=== PATIENT | male | born 1960 | race Caucasian/White ===

== ENCOUNTER → 2021-06-14 16:30 | Outpatient (BNVA) | payer MEDICAID, SELFPAY | PROVIDERS: Visit Provider Nurse Practitioner Family | DX: E11.9 Type 2 diabetes mellitus without complications (principal); B19.20 Unspecified viral hepatitis C without hepatic coma; I10 Essential (primary) hypertension; R39.11 Hesitancy of micturition; Z79.4 Long term (current) use of insulin | CPT/HCPCS: 80053; 80061; 81000; 81003; 82043; 83036; 85025; 86705; 86706; 86709; 86803; 87086; 87340; 87522; 87902; G0103 ==

== ENCOUNTER → 2021-06-21 09:48 | Outpatient (BNVA) | payer MEDICAID, SELFPAY | PROVIDERS: Referring Provider Nurse Practitioner Family; Visit Provider Orthopaedic Surgery | DX: Z01.812 Encounter for preprocedural laboratory examination (principal); M25.561 Pain in right knee; M17.11 Unilateral primary osteoarthritis, right knee | CPT/HCPCS: 73560; 73565 ==

== ENCOUNTER → 2021-07-17 10:15 | Outpatient (BNVA) | payer MEDICAID, SELFPAY | PROVIDERS: Visit Provider Nurse Practitioner Family | DX: R31.9 Hematuria, unspecified (principal); R39.11 Hesitancy of micturition | CPT/HCPCS: 81003; 87086 ==

== ENCOUNTER 2021-08-10 06:44 | Outpatient (CLI) | payer MEDICAID, SELFPAY ==
--- NOTE | 2021-08-10 07:15 | US_ITS ---
WS: [id number] ULTRASOUND ABDOMEN CLINICAL INFORMATION: K74.60 - Unspecified cirrhosis of liver COMPARISON: None. FINDINGS: Liver Size: Enlarged Craniocaudal length: 19.2 cm. Echogenicity: Coarse Surface nodularity: Cirrhotic Mass (size and location): None. Bile ducts Intrahepatic ducts: Normal. Common bile duct diameter: 0.4 cm. Gallbladder Cholecystectomy Pancreas Normal as visualized. Spleen Splenomegaly: Enlarged Craniocaudal length: 17.9 cm. Right kidney: Multiple small simple cysts. Incidental 7 mm nonobstructing calculus right kidney. Hydronephrosis: None. Size: 11.4 cm x 6.0 cm x 5.7 cm Left kidney: Small simple cyst Hydronephrosis: None. Size: 12.3 cm x 5.7 cm x 4.2 cm. Abdominal aorta and IVC Visualized portions are normal. Ascites: Trace US/US abdomen complete* [id number] IMPRESSION: 1. Hepatomegaly with cirrhotic configuration to the liver. 2. Prior cholecystectomy. 3. No hydronephrosis in either kidney. 4. Splenomegaly. 5. Incidental simple renal cysts.
== END 2021-08-10 06:45 | disposition home or self-care (01) ==
PROVIDERS: PCP Nurse Practitioner Family; Visit Provider Nurse Practitioner Family
DX: K74.60 Unspecified cirrhosis of liver (principal); R16.0 Hepatomegaly, not elsewhere classified; Z90.49 Acquired absence of other specified parts of digestive tract; R16.1 Splenomegaly, not elsewhere classified; N28.1 Cyst of kidney, acquired
CPT/HCPCS: 76700

== ENCOUNTER 2021-08-23 11:06 | Outpatient (CLI) | payer MEDICAID, SELFPAY ==
--- NOTE | 2021-08-23 11:00 | CT_ITS ---
WS: [id number] CT ABDOMEN AND PELVIS WITH AND WITHOUT CONTRAST HISTORY: HEMATURIA TECHNIQUE: Unenhanced 5 mm axial imaging first performed through the abdomen. Post contrast imaging t hrough the abdomen and pelvis. Oral contrast has not been provided. Sagittal and coronal reformats a re submitted. All CT scans at [facility] use at least one of these dose optimization techniqu es: automated exposure control; mA and/or kV adjustment per patient size (includes targeted exams whe re dose is matched to clinical indication); or iterative reconstruction. CONTRAST: Omnipaque 300; 95 mL IV. DLP: 3271.63 mGy.cm COMPARISON: 02/08/2013 Benign granuloma in the lingula. Otherwise lung bases are clear. Heart size is normal. Moderate hiata l hernia. Normal size liver with advanced nodularity along the surface and changes of cirrhosis. Mild caudate e nlargement. Portal vein is patent. Small amount of perihepatic fluid. Spleen is markedly enlarged ext ending over length of 17.2 cm. Prior cholecystectomy. No bile duct dilatation. There is a small cyst measuring 9 mm in the tail of the pancreas. No adrenal mass. No renal obstruction. Nonobstructing gurpreet cifications within each kidney. No solid mass or uroepithelial lesions. The ureters are not dilated b ut also incompletely visualized due to contrast excretion being intermittent. Mild atherosclerosis ao rta. There is extensive mild soft tissue infiltration throughout the mesentery extensive collateral vessel s are also noted extending towards the spleen. Diffuse fecal retention. Moderate thickening involving the cecum with adjacent soft tissue infiltrati on and stranding. No oral contrast was provided for this examination therefore the mucosa is very poo rly visualized. There are a few scattered mesenteric lymph nodes. Retroperitoneal lymph nodes are audrey tty. Well-distended urinary bladder. Prostate gland is slightly enlarged and central calcifications. Fluid extending along the inguinal canals and bilateral hydroceles. Umbilical hernia contains fat. There are several lobulated soft tissue components which are consisten t with fat as demonstrated by Hounsfield units. 10 mm anterolisthesis of L5 bilateral pars defects. Remote healed rib fractures in the RIGHT lateral thorax. CT/CT abdomen pelvis wo/w [id number] IMPRESSION: 1. No renal or ureteral obstruction or uroepithelial lesions. Nonobstructing b ilateral renal calculi. 2. Advanced cirrhosis with splenomegaly. 3. There is a large amount of soft tissue infiltration throughout the mesenter y with small mesenteric and retroperitoneal lymph nodes. These changes may all be due to liver failure and edema. Infiltration of the mesentery by tumor canno t be excluded. 4. Soft tissue thickening at the cecum and needs to be further evaluated. Mona dean neoplasm is not excluded. Recommend colonoscopy. 5. Moderate hiatal hernia. 6. Very small amount of perihepatic fluid. 7. Pancreatic tail 9 mm cyst. 8. Cholecystitis
[2021-08-23 12:41] LABS: Blood Urea Nitrogen 10 mg/dL (8-23); Glomerular Filtration Rate 114.3 mL/min (90-130)
[2021-08-23] MEDS: iohexol 300 mg/mL 100 mL Btl IV (13:33)
== END 2021-08-23 11:07 | disposition home or self-care (01) ==
LOC: RAD 11:10
PROVIDERS: PCP Nurse Practitioner Family; Visit Provider Urology
DX: R31.9 Hematuria, unspecified (principal); K81.9 Cholecystitis, unspecified; K86.2 Cyst of pancreas; K44.9 Diaphragmatic hernia without obstruction or gangrene; K74.60 Unspecified cirrhosis of liver; R16.1 Splenomegaly, not elsewhere classified
CPT/HCPCS: 36415; 74178; 81003; 82565; 84520; 87086; 88112

== ENCOUNTER → 2021-08-30 11:13 | Outpatient (BNVA) | payer MEDICAID, SELFPAY | PROVIDERS: PCP Nurse Practitioner Family; Visit Provider Orthopaedic Surgery | DX: Z01.812 Encounter for preprocedural laboratory examination (principal); Z20.822 Contact with and (suspected) exposure to COVID-19 | CPT/HCPCS: 87635 ==

== ENCOUNTER 2021-09-04 10:01 | Observation (INO) | payer MEDICAID, SELFPAY ==
[2021-08-30 12:55] VITALS: BMI 28.8
--- NOTE | 2021-08-30 13:03 | ECG_ITS ---
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 Measurements Intervals [place] Rate: 80 P: -83 CA: 93 QRS: 59 QRSD: 86 T: 56 QT: 361 QTc: 419 Interpretive Statements JUNCTIONAL RHYTHM ABNORMAL RHYTHM ECG No previous ECG available for comparison Electronically Signed On 08-30-2021 20:12:03 CDT by Ana Ugalde M.D. [id number]
--- NOTE | 2021-08-30 13:50 | P.ANESASSM_ITS ---
Pre-Anesthetic Assessment Pre-Anesthetic Assessment: Height/Weight: Height 1.7 m Weight 83.461 kg Preop Diagnosis: Osteoarthritis Right knee Proposed Procedure: Operation Date: 09/04/21 07:00 Proposed Procedures p right total knee arthroplasty 05984 m17.12(Right) - Darius Alfonso MD Familial anesthetic complications: None Social: Social History: Tobacco and No alcohol Exam: Pre-Anes Outpt Exam: alert, oriented x 3, clear to auscultation bilaterally and regular rate & rhythm Airway: Cervical ROM: WNL MP: 3 Dentition: Other (multiple missing teeth) CV/HEM: Comments: My son had congenital heart disease and had to have 5-6 open heart surgeries - he thinks it may have been transposition of great vessels, but he is unsure Junctional rhythm on EKG - 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, no further investigation required, similar to EKG in 2013 Hepatic: Hepatic: Cirrohsis and Hepatitis (C) Metabolic: Metabolic: DM Anesthetic Plan: ASA status: 3 Anesthesia: Regional (specify below) (spinal + adductor) Risk of > 500 ml blood loss (7ml/kg in children): No PFSH Anesthesia PFSH: Medical History BPH w urinary obs/LUTS Cirrhosis of liver Diabetes Hepatitis C Hernia MRSA (methicillin resistant staph aureus) culture positive Osteomyelitis Surgical History H/O knee surgery Hx of appendectomy No pertinent past surgical history Family History Son CAD (coronary artery disease) Mother Diabetes Hypertension Father , at age 62 Hypertension Lung disease Stroke Social History Second hand smoke exposure: No Alcohol intake: former Caregiver/support person: Yes Lives independently: Yes Marital status: service: No Current occupational status: disabled History of recent travel: No Special maranda needs: No Agree to transfusion: Yes Data Anesthesia CBC & Chem 7: 08/30/21 13:37 08/30/21 13:37 Cardiac Studies: No Data to Display
[2021-08-30 14:14] LABS: Basophils # 0.1 10^3/uL (0.0-0.1); Basophils % 0.9 %; Eosinophils # 0.6 10^3/uL (0.0-0.8); Eosinophils % 9.3 %; Hematocrit 36.7 % (42.0-52.0); Lymphocytes % 15.2 %; Mean Corpuscular HGB Conc 32.7 g/dL (30.0-36.0); Mean Corpuscular Hemoglobin 30.2 pg (28.0-34.0); Mean Corpuscular Volume 92.4 fl (80-94); Mean Platelet Volume 12.5 fL (7.4-10.4); Monocytes # 0.8 10^3/uL (0.2-0.9); Monocytes % 11.8 %; Neutrophils # 4.18 10^3/uL (1.8-7.7); Neutrophils % 62.4 %; Nucleated Red Blood Cells % 0 %; Platelet Count 94 10^3/cmm (130-400); Red Blood Count 3.97 10^6/uL (4.1-5.3); Red Cell Distribution Width 15.2 % (12.1-15.1); White Blood Count 6.7 10^3/uL (4.0-10.0)
[2021-08-30 14:40] LABS: Anion Gap 11.5 (5-19); Blood Urea Nitrogen 8 mg/dL (8-23); Calcium 8.5 mg/dL (8.5-10.5); Carbon Dioxide 28 mmol/L (22-29); Chloride 101 mmol/L (98-107); Glomerular Filtration Rate 136.5 mL/min (90-130); Glucose 196 mg/dL (65-115); Osmolality Calculated 286 mOsm/kg (285-295); Potassium 4.5 mmol/L (3.5-5.1); Sodium 136 mmol/L (136-145)
[2021-09-04] VITALS (12 sets, daily range): BP systolic 136–163; BP diastolic 62–83; PULSE 65–79; RESP 12–20; TEMP 36.3–36.9; O2SAT 94–100; BMI 28.8
--- NOTE | 2021-09-04 06:38 | PC.NURSE ---
Dr. denson notified of pt c/o of blood in urine, frequency. pt states he seen dr. tan 2 weeks ago . states he has a spot on his bladder and one on his colon. states he was taking antibiotics and didn't finish them. When asked he states he took all but 2 pills.
--- NOTE | 2021-09-04 06:53 | P.ANESUD_ITS ---
Pre-Anesthetic Update Pre-Anesthetic Assessment: Date of Surgery/Procedure: 09/04/21 Preop Blaire gnosis: Osteoarthritis Right knee Proposed Procedure: Operation Date: 09/04/21 07:00 Proposed Procedures p right total knee arthroplasty 88946 m17.12(Right) - Darius Alfonso MD Any changes to Pre-Anesthetic Assessment?: No Last Intake: Intake Last Liquid Date 09/03/21 Last Liquid Time 23:59 Last Solid Date 09/03/21 Last Solid Time 22:30 Vitals: Temperature 98.5 F 09/04/21 05:51 Temperature Source Temporal Artery S can 09/04/21 05:51 Pulse Rate 72 09/04/21 05:51 Respiratory Rate 18 09/04/21 05:51 Blood Pressure 163/80 09/04/21 05:51 Blood Pressure Юлия n 107 09/04/21 05:51 Pulse Oximetry 100 09/04/21 05:51 Oxygen Delivery Me thod 09/04/21 06:17 Exam: Pre-Anes Outpt Exam: alert, oriented x 3, clear to auscultation bilaterally and regular rate & rhythm Other Pertinent Information: Other Pertinent Information: SAB with adductor blk Cardiac Studies: No Data to Display
--- NOTE | 2021-09-04 07:00 | W.PM.OPSFHP ---
Same Day Surgery H&P Indication for Procedure/HPI DATE OF PROCEDURE: September 04, 2021 CHIEF COMPLAINT/INDICATIONFOR SURGICAL PROCEDURE: Osteoarthritis of right knee here for elective total knee arthroplasty PREOP DIAGNOSIS: Osteoarthritis Right knee PLANNED PROCEDRUE: Operation Date: 09/04/21 07:00 Proposed Procedures p right total knee arthroplasty 14311 m17.12(Right) - Darius Alfonso MD 60-year-old male with 4-year history of progressive right knee pain. Has had no improvement with multiple corticosteroid injections. Has significant functional limitations if he walks no further than a block. Here for total knee arthroplasty ROS Followed by Dr. Yair Eastman for hematuria. Last cystoscopy revealed suspicious mucosa and apparently scheduled for a biopsy. I can see no history of UTIs. Medications/Allergies* Home Medications Medication Instructions Recorded Confirmed Type insulin aspar prt-insulin aspart 5 unit SUBCUT DIRECTED ml 06/14/21 09/04/21 History 100 unit/mL (70-30) subcutaneous soln Allergies/Adverse Reactions Allergy/AdvReac Type Severity Reaction Status Date / Time codeine Allergy ALGY-Rash Verified 08/23/21 14:04 Pertinent History/Comorbid Conditions* Medical History (Updated 08/12/21 @ 06:02 by Gomez Eastman MD) BPH w urinary obs/LUTS Cirrhosis of liver Diabetes Hepatitis C Hernia MRSA (methicillin resistant staph aureus) culture positive Osteomyelitis Surgical History (Updated 08/12/21 @ 06:02 by Gomez Eastman MD) H/O knee surgery Hx of appendectomy No pertinent past surgical history Family History (Updated 08/11/21 @ 10:13 by Nury Menchaca LPN) Father, at age 62 Diabetes Mother CAD (coronary artery disease) Son Lung disease Father Hypertension Mother Father Stroke Father Social History Second hand smoke exposure: No Alcohol intake: former Caregiver/support person: Yes Lives independently: Yes Marital status: service: No Current occupational status: disabled History of recent travel: No Special maranda needs: No Agree to transfusion: Yes Pertinent Exam Findings alert, oriented x 3, clear to auscultation bilaterally, regular rate & rhythm and operative site marked Recommendations Surgery/Procedure today Coding Level of Care Code Acute Performance Improvement Consultant for [employer]
[2021-09-04] MEDS: acetaminophen 500 mg Tablet 1000 MG PO ×3 (07:03→17:39)
[2021-09-04] MEDS: CELEcoxib 100 mg Capsule 400 MG PO (07:03)
[2021-09-04] MEDS: gabapentin 300 mg Capsule PO ×2 (07:04→17:39)
[2021-09-04] MEDS: oxyCODONE 20 mg ER (12 HR) Tablet PO (07:04)
[2021-09-04] MEDS: sodium chloride 0.9% 1,000 ML 30 ML IV (07:16)
[2021-09-04] MEDS: vancomycin 1,000 MG in sodium chloride 0.9% 250 ML 250 MG IV (07:18)
[2021-09-04 07:24] LABS: Glucose Point of Care 133 mg/dL (70-110)
--- NOTE | 2021-09-04 07:51 | ANES.PROC ---
Anesthesia Procedures Procedure/Date: 09/04/21 Nerve Block ^: Nerve Block 1: Main Anesthesia: spinal anesthesia block Time Out Performed: Yes Consent: requested by attending/covering physician, from patient, risks and benefits reviewed and patient agrees to proceed Nerve block location: adductor canal (right) Anesthesia monitors applied: pulse oximetry, EKG, BP cuff and oxygen Nerve block position: supine Anesthetic Used: ropivicaine 0.5% Amount of anesthesia used (mL): 20 Ultrasound used to: recognize landmarks Nerve Stimulator Used?: No Interscalene/Femoral BLK: 4 stimuplex 21 g needle used for position and inplane approach and visualize local anesthetic spread Injection: neg aspiration of heme Patient Tolerated Procedure: well Complications: none
[2021-09-04] MEDS: EPINEPHrine 1 mg/mL INJ XX (08:10)
[2021-09-04] MEDS: tranexamic acid 1,000 mg/10mL SDV 1000 MG IRRIGATION (08:11)
[2021-09-04] MEDS: ketorolac 30 mg/mL INJ IM (08:15)
--- NOTE | 2021-09-04 09:12 | XRR_ITS ---
PROCEDURE INFORMATION: Exam: XR Right Knee Exam date and time: 09/04/2021 9:12 AM Age: 60 years old Clinical indication: Device placement; Joint replacement hardware; Prior surgery; Surgery date: Post-operative (0-2 days); Surgery type: Right total knee arthroplasty TECHNIQUE: Imaging protocol: XR Right knee. Views: 1 or 2 views. COMPARISON: CR XR knees AP WB w RT lmt ORTH 06/21/2021 9:54 AM FINDINGS: Bones/joints: The patient is status post right total knee arthroplasty with patellar resurfacing. No evidence of hardware related complication. No fracture or dislocation identified. Expected postoperative soft tissue changes noted. Soft tissues: See Bones/joints finding. XR/XR knee RT 1-2V 02092 IMPRESSION: Status post right total knee arthroplasty, without evidence of hardware related complication. Radiation Dose CTDIVOL = (mGy): DLP = (mGy-cm)
--- NOTE | 2021-09-04 09:13 | P.OP_ITS ---
Operative Report Date of procedure: September 04, 2021 Pre-op Diagnosis: Osteoarthritis Right knee Post-op diagnosis: same Post-op Findings: Same Procedure Done: Right total knee arthroplasty Implants: [place] total knee arthroplasty components were used includin) Size 5 triathalon cruciate retaining femoral component 2) Size 6 Tritanium tibial component 3) 35 mm /10 mm thickness Tritanium asymetric patella 4) Size 6/11 mm thickness CR tibial bearing insert Pathology: none sent Surgeon: Darius Alfonso Anesthesia: Nerve Block (Spinal, adductor canal block) Estimated blood loss (mL): 150 Complications: None Findings: The patient and eburnated bone over the medial femoral condyle and medial tibial plateau Condition: stable Disposition: PACU Procedure: The patient was taken to the operating room. Patient was given 1 g of tranexamic acid . The above anesthesia provided by the anesthesia service. A timeout was performed. The patient was prepped and draped in the usual fashion with the lower extremity exposed. A anterior incision was made, mi dline, from a point proximal to the patella to the distal tibial tubercle. The knee was entered through a medial parapatellar approach. The patella could be displaced laterally and the knee flexed. The patellar fat pad was resected to provide better visibility. Retractors were placed medially and laterally adjacent to the tibial plateau. The femoral canal was drilled in line with the longitudinal axis of the femur. Intramedullary femoral guide for used to make a distal femoral cut in 5 degrees of valgus, resecting 8 mm from the more prominent condyle. Next the extra medullary tibial guide was placed in alignment with the longitudinal axis of the tibia. The cutting guides were set to remove just over 9 mm from the high tibial plateau. The proximal tibia was then cut. The femoral measuring guide was then placed over the distal femur. Rotation was verified checking the relationship of the guide to the condyle and the trochlear groove. The femur was measured and cut for the desired femoral component. The desired tibial baseplate was then chosen. A trial reduction with the femur tibial baseplate and polyethylene was done, assuring that the knee was stable throughout full mo tion. Ligament balancing involved nothing more than a release of the deep medial collateral ligament.The tibia was prepared for the tibial baseplate. Patellar thickness was then measured. The patella was cut removing articular cartilage and prepared for appropriate size patellar button. surfaces were cleaned with a gentamicin/tranexamic acid solution. The femur tibia and patella were then press-fit into place. The posterior capsule and collateral ligaments were then injected with a solution of 100 mL of 0.2% ropivacaine, 1 mL of a 1:1000 epinephrine solution, 30 mg of Toradol, and 1 g of tranexamic acid. final polyethylene component was then snapped into place into the tibia. The extensor retinaculum was closed with a running 1 Stratafix.. The subcutaneous tissues were closed with 2-0 Vicryl and the skin was closed with a running 4-0 Stratafix. The wound was covered with a Dermabond Prinio dressing. It was covered with 4xrs and a compressive Tubigauae was applied. The patient was taken to recovery room in stable condition.
[2021-09-04] MEDS: sodium chloride 0.9% 1,000 ML 100 ML IV ×2 (10:53→23:20)
[2021-09-04] MEDS: ondansetron 2 mg/ML SDV 2 mL 4 MG IVP (10:53)
[2021-09-04 12:29] LABS: Glucose Point of Care 191 mg/dL (70-110)
[2021-09-04] MEDS: insulin lispro 100 unit/1 mL SUBCUT ×3 (13:57→21:06)
--- NOTE | 2021-09-04 15:43 | ANE.PACU2 ---
Inpatient post-anesthesia follow up: Airway intact: Yes Vital signs: Temperature 97.4 F Pulse Rate 79 Respiratory Rate 14 Blood Pressure 153/76 Pulse Oximetry 96 Oxygen Delivery Me thod Room Air Oxygen Flow Rate 8 Fraction of Inspir ed Oxygen Hydration adequate: Yes Nausea and vomiting: No Pain level: 2 Mental status: Baseline
[2021-09-04 17:01] LABS: Glucose Point of Care 176 mg/dL (70-110)
[2021-09-04] MEDS: sennosides-docusate Tablet 2 TAB PO (17:39)
[2021-09-04 20:56] LABS: Glucose Point of Care 205 mg/dL (70-110)
[2021-09-04] MEDS: CELEcoxib 100 mg Capsule 200 MG PO (21:03)
[2021-09-04] MEDS: oxyCODONE 5 mg IR Tab/Cap PO (21:05)
[2021-09-05] VITALS (8 sets, daily range): BP systolic 123–148; BP diastolic 57–69; PULSE 70–91; RESP 16–22; TEMP 36.6–36.9; O2SAT 92–97
[2021-09-05] MEDS: oxyCODONE 5 mg IR Tab/Cap PO ×3 (00:43→11:54)
[2021-09-05] MEDS: acetaminophen 500 mg Tablet 1000 MG PO ×2 (02:22→09:02)
[2021-09-05 03:02] LABS: Hemoglobin 10.3 g/dL (11.7-16.6)
--- NOTE | 2021-09-05 05:33 | PC.NURSE ---
SHIFT SUMMARY Has rested well tonight. Has received prn po OXYIR and scheduled po Tylenol for postop pain. Dressing to right knee C&D. Ice pack in place. Good neurovascular check to RLE. Some edema is present. Taking po fluids well. IV infusing at 100ml/hr rate. Had some hematuria in urine that has cleared quite a bit this am. No clots were observed. Majano will be removed this am. Is hoping to get to go home today
[2021-09-05 07:07] LABS: Glucose Point of Care 185 mg/dL (70-110)
[2021-09-05] MEDS: sodium chloride 0.9% 1,000 ML 100 ML IV (09:00)
[2021-09-05] MEDS: insulin lispro 100 unit/1 mL SUBCUT ×2 (09:01→11:54)
[2021-09-05] MEDS: lisinopril 10 mg Tablet PO (09:02)
[2021-09-05] MEDS: hydroCHLOROthiazide 25 mg Tablet 12.5 MG PO (09:02)
[2021-09-05] MEDS: sennosides-docusate Tablet 2 TAB PO (09:02)
[2021-09-05] MEDS: tamsulosin 0.4 mg Capsule PO (09:02)
[2021-09-05] MEDS: aspirin 325 mg EC Tablet PO (09:02)
[2021-09-05] MEDS: gabapentin 300 mg Capsule PO (09:03)
--- NOTE | 2021-09-05 10:45 | PM.DCS ---
Discharge Providers Date of Admission: 09/04/21 10:01 Date of Discharge: September 05, 2021 Attending Provider at Admission: Darius Alfonso MD Attending Provider at Discharge: Darius Alfonso MD Primary Care Provider: NANCY Mathis Diagnoses at Discharge Discharge Diagnosis (1) Status post right knee replacement: Status: Acute (2) Osteoarthritis of right knee: Status: Resolved Reason for Visit Reason for Visit: right total knee arthroplasty 73256 Hospital Course Hospital Course The patient tolerated surgery well. They remained hemodynamically stable. They was begun on aspirin and foot pumps for DVT prophylaxis. The patient was mobilized with therapy beginning the day of surgery and by the first postoperative day independent with the walker. As the pain was adequately controlled and they were fully mobile they were discharged home. Physical Exam Narrative: EXAM NARRATIVE: On the day of discharge his knee incision was clean. They had no drainage. There is minimal swelling in the thigh and knee and the calf. No distal neurovascular deficits were noted Urinary Catheter Management^: Majano: Cath Placed During This Visit: yes, but has since been removed by the nurse Reason for Continuing Indwelling Catheter: Decision to DC Catheter Urinary Catheter Date of Insertion: 09/04/21 Urinary Catheter Time of Insertion: 07:35 Date Urinary Catheter Removed: 09/05/21 Time Urinary Catheter Discontinued: 06:25 Discharge Data Data Completed and Pending: Completed Studies During Hospitalization Category Date Time Status XR knee RT 1-2V 7 3560 Routine Exams 09/04/21 09:12 Completed Labs from last 24 hours 09/05/21 09/05/21 09/04/21 06:59 02:38 20:46 Hgb 10.3 L POC Glucose 185 H 205 H 09/04/21 09/04/21 16:55 12:19 Hgb POC Glucose 176 H 191 H Vitals: Last Vital Signs Temp 98.2 F 09/05/21 07:56 Pulse 74 09/05/21 07:56 Resp 17 09/05/21 07:56 BP 136/69 09/05/21 07:56 Pulse Ox 95 09/05/21 07:56 Discharge Plan Discharge Patient Disposition: Home Condition: Stable Prescriptions: New oxycodone 5 mg Tablet 5 mg PO Q4H PRN (Reason: Moderate Pain) 7 Days Qty: 40 RF: 0 acetaminophen 500 mg Tablet 1,000 mg PO Q8H 14 Days Qty: 84 RF: 0 aspirin 325 mg Tablet,Delayed Release (Dr/Ec) 325 mg PO DAILY 30 Days RF: 0 gabapentin 300 mg Capsule 300 mg PO BID 7 Days Qty: 14 RF: 0 celecoxib 100 mg Capsule 200 mg PO Q12H 14 Days Qty: 56 RF: 0 Continued insulin asp prt-insulin aspart [Novolog Mix 70-30 U-100 Insuln] 100 unit/mL (70-30) solution 5 unit SUBCUT DIRECTED RF: 0 lisinopril-hydrochlorothiazide 10-12.5 mg tablet 1 tab PO DAILY Qty: 90 RF: 0 tamsulosin [Flomax] 0.4 mg capsule 0.4 mg PO DAILY Qty: 30 RF: 12 Discharge Orders: Discharge Order (Routine); Ordered 09/05/21 Ordered By: Darius Alfonso Other Ambulatory Orders: DME: Walker (Order) Location: None Selected Ordered By: Darius Alfonso Referrals: Dr Du Dueñas [Other] Darius Alfonso MD [Physician] - 09/08/21 8:00 am Discharge Diet: Advance as tolerated Discharge Activity: Limit activity as instructed Patient Instructions: Oxycodone, Rapid Release (By mouth), Knee Replacement (GEN), Opioid Safety Activity Restrictions/Additional Instructions: Okay to shower Keep Tubigauze sleeve in place for swelling. Okay to remove for hygiene. Apply FirstIce up to 20 min/hr for pain and swelling Take Celebrex twice a day for the next 15 days for pain , discontinue other anti-inflammatories Take Neurontin twice a day for 7 days. Take Tylenol 500mg (1-2 tabs) as needed 3 times a day for mild pain take oxycodone for breakthrough pain. Exercises per physical therapy. May weight-bear as tolerated on total knee arthroplasty Discharge Attestations Time Spent in Discharge Care*: other Quality Metrics Clinical Quality Measures During this hospital stay, did patient experience: None Coding Level of Care Code Acute [facility] note Diagnoses Status post right knee replacement Z96.651 Osteoarthritis of right knee M17.11
[2021-09-05 11:27] LABS: Glucose Point of Care 220 mg/dL (70-110)
[2021-09-05] MEDS: CELEcoxib 100 mg Capsule 200 MG PO (11:54)
--- NOTE | 2021-09-05 13:13 | PC.NURSE ---
discharge instructions given to patient and patient verbalized understanding of instructions.
--- NOTE | 2021-09-05 13:26 | PC.NURSE ---
patient taken to private vehicle via wheelchair by consumer loan underwriter.
== END 2021-09-05 13:33 | disposition home or self-care (01) ==
LOC: MEDSURG 10:58
PROVIDERS: Anesthesiology; Admitting Provider Orthopaedic Surgery; PCP Nurse Practitioner Family; Visit Provider Orthopaedic Surgery
PROC: (CPT 27447; principal; 2021-09-04 07:00)
DX: M17.11 Unilateral primary osteoarthritis, right knee (principal); N40.1 Benign prostatic hyperplasia with lower urinary tract symptoms; N13.8 Other obstructive and reflux uropathy; E11.9 Type 2 diabetes mellitus without complications; Z86.19 Personal history of other infectious and parasitic diseases; Z86.14 Personal history of Methicillin resistant Staphylococcus aureus infection; Z82.49 Family history of ischemic heart disease and other diseases of the circulatory system; Z83.3 Family history of diabetes mellitus
CPT/HCPCS: 27447; 36415; 36416; 64447; 73560; 76942; 80048; 82962; 85018; 85025; 93005; 96372; 97110; 97116; 97161; 97165; 97530; C1776; G0378; J0171; J0690; J1580; J1815; J1885; J2250; J2405; J2704; J2795; J3370; J7030; J7050

== ENCOUNTER → 2021-11-15 11:51 | Outpatient (BNVA) | payer MEDICAID, SELFPAY | PROVIDERS: PCP Nurse Practitioner Family; Referring Provider Nurse Practitioner Family; Visit Provider Orthopaedic Surgery | DX: Z96.651 Presence of right artificial knee joint (principal); M25.559 Pain in unspecified hip | CPT/HCPCS: 73560; 73565 ==

== ENCOUNTER → 2023-01-22 13:25 | Outpatient (BNVA) | payer MEDICAID, SELFPAY | PROVIDERS: PCP Nurse Practitioner Family; Visit Provider Nurse Practitioner Family | DX: M17.12 Unilateral primary osteoarthritis, left knee (principal); Z96.651 Presence of right artificial knee joint | CPT/HCPCS: 20610; 73560; 73565; 99214; J1100; J2795; J3301 ==

== ENCOUNTER → 2023-04-24 10:05 | Outpatient (BNVA) | payer MEDICAID, SELFPAY | PROVIDERS: PCP Nurse Practitioner Family; Visit Provider Nurse Practitioner Family | DX: M17.12 Unilateral primary osteoarthritis, left knee (principal) | CPT/HCPCS: 99213 ==

== ENCOUNTER → 2023-04-24 10:05 | Outpatient (BNVA) | payer MEDICAID, SELFPAY | PROVIDERS: PCP Nurse Practitioner Family; Visit Provider Nurse Practitioner Family | DX: Z01.818 Encounter for other preprocedural examination (principal); M17.12 Unilateral primary osteoarthritis, left knee | CPT/HCPCS: 36415; 80053; 83036; 85025 ==

== ENCOUNTER → 2023-04-24 10:31 | Outpatient (BNVA) | payer MEDICAID, SELFPAY | PROVIDERS: PCP Nurse Practitioner Family; Visit Provider Nurse Practitioner Family | DX: M17.12 Unilateral primary osteoarthritis, left knee (principal) | CPT/HCPCS: 73560; 73565 ==

== ENCOUNTER 2024-01-06 17:06 | Emergency (ER) | payer MEDICARE, MEDICAID, SELFPAY ==
[2024-01-06 17:13] VITALS: BP 157/67; PULSE 70; RESP 14; TEMP 37.1; O2SAT 97; BMI 31.3
[2024-01-06 18:19] LABS: Basophils # 0.1 10^3/uL (0.0-0.1); Eosinophils # 0.4 10^3/uL (0.0-0.8); Hematocrit 38.1 % (37-53); Lymphocytes # 0.8 10^3/uL (0.8-4.8); Lymphocytes % 15.5 %; Mean Corpuscular HGB Conc 32.3 g/dL (30-55); Mean Corpuscular Hemoglobin 30.6 pg (27-33); Mean Corpuscular Volume 94.8 fl (82-101); Mean Platelet Volume 11.6 fL (7.4-10.4); Monocytes # 0.5 10^3/uL (0.2-0.9); Neutrophils # 3.34 10^3/uL (1.8-7.7); Neutrophils % 65.3 %; Nucleated Red Blood Cells % 0 %; Platelet Count 74 10^3/cmm (157-399); Red Blood Count 4.02 10^6/uL (3.85-5.65); Red Cell Distribution Width 14.8 % (12.1-15.1); White Blood Count 5.11 10^3/uL (3.29-11.43)
--- NOTE | 2024-01-06 18:25 | ED_ITS ---
HPI - Recheck/Abnormal Lab/Rx 2 General: Chief Complaint: Recheck/Abnormal Lab/Rx Stated Complaint: sent by dr, ammonia levels elevated Time Seen by Provider: 01/06/24 18:21 Source: patient Mode of arrival: ambulatory Limitations: no limitations History of Present Illness: 63-year-old male who has a history of ci rrhosis hepatitis C states he had some confusion and hallucination over the last 3 to 4 days he said he was seen 2 days ago and had an elevated ammonia and was started on lactulose that he is taking lactulose last 2 days but states he had his ammonia levels drawn again today and stated they were higher he denies any fever he is answering all my questions appropriately but states that he has been seeing people and having intermittent confusion Review of Systems 2 Const: Denies: fever(s) or chills ENMT: Denies: throat pain or dental pain Card: Denies: chest pain Resp: Denies: dyspnea GI: Denies: abdominal pain, nausea, vomiting or diarrhea Musc: Denies: neck pain or back pain Neuro: Reports: confusion; Denies: headache(s) PFSH ED 2 PFSH: Medical History BPH w urinary obs/LUTS Injury of finger of left hand Screening for colon cancer Diabetes Hepatitis C Cirrhosis of liver Hernia MRSA (methicillin resistant staph aureus) culture positive Osteomyelitis Surgical History H/O knee surgery Hx of appendectomy No pertinent past surgical history Family History Son CAD (coronary artery disease) Mother Diabetes Hypertension Father , at age 62 Hypertension Lung disease Stroke Social History Second hand smoke exposure: No Alcohol intake: former Substance/Drug Use: current Substance/Drug use frequency: daily Other substance/drug use details: last meth use 1 month ago Caregiver/support person: Yes Lives independently: Yes Marital status: service: No Current occupational status: disabled Special maranda needs: No Agree to transfusion: Yes Physical Exam 2 Const: COMMON NORMALS: no acute distress, patient oriented x3 and healthy appearing HENMT: COMMON NORMALS: normocephalic and atraumatic HEAD & SCALP: n ormocephalic and atraumatic Neck/C-Spine: COMMON NORMALS: full ROM and supple Chest: COMMONS NORMALS: normal inspection of the chest and normal palpation of entire chest wall Resp: COMMON NORMALS: normal respiratory effort, No retractions, No use of accessory muscles and clear to auscultation bilaterally AUSCULTATION: clear to auscultation bilaterally Cardio: COMMON NORMALS: regular rate, regular rhythm and No murmurs present (Cardio) RATE: regular rate RHYTHM: regular rhythm GI: COMMON NORMALS: Normal to inspection, nondistended, normoactive bowel sounds present, Soft to palpation, non-tender and no masses PALPATION: Yes Soft to palpation Extremity: COMMON NORMALS: normal to inspection and full ROM Neuro: COMMON NORMALS: patient oriented x3, moves all extremities and no focal motor deficits Psych: COMMON NORMALS: mental status grossly normal, Normal thought process present and cooperative THOUGHT PROCESS: Normal thought process present Skin: COMMON NORMALS: no rashes or lesions noted and no wounds GENERAL SKIN EXAM: no rashes or lesions noted Course 2 Vital Signs: Vital signs: Vital Signs Temperature 98.7 F 01/06/24 17:13 Pulse Rate 70 01/06/24 17:13 Respiratory Rate 14 01/06/24 17:13 Blood Pressure 157/67 01/06/24 17:13 Pulse Oximetry 97 01/06/24 17:13 Oxygen Delivery Me thod Room Air 01/06/24 17:13 MDM - Recheck/Abnormal Lab/Rx Medical Decision Making Patient presents here with cirrhosis he had a mildly elevated ammonia he had some hallucinations he has no hallucinations here no confusion no signs of hepatic encephalopathy where he needs to be admitted he is only been on lactulose 2 days he is continue his lactulose follow-up with PCP he has ammonia rechecked if his confusion worsens he is return to the ER he understands agrees to plan Medical Records I reviewed the patient's medical records. Lab Data I reviewed the patient's lab results. 01/06/24 18:04 01/06/24 18:04 Radiology Impressions Chest X-Ray 01/06/24 18:35 IMPRESSION: No acute findings. Laboratory Results WBC 5.11 10^3/uL (3.29-11.43) 01/06/24 18:04 RBC 4.02 10^6/uL (3.85-5.65) 01/06/24 18:04 Hgb 12.30 g/dL (11.27-16.99) 01/06/24 18:04 Hct 38.1 % (37-53) 01/06/24 18:04 MCV 94.8 fl (82-101) 01/06/24 18:04 MCH 30.6 pg (27-33) 01/06/24 18:04 MCHC 32.3 g/dL (30-55) 01/06/24 18:04 RDW 14.8 % (12.1-15.1) 01/06/24 18:04 Plt Count 74 10^3/cmm (157-399) L 01/06/24 18:04 MPV 11.6 fL (7.4-10.4) H 01/06/24 18:04 Neut % (Auto) 65.3 % 01/06/24 18:04 Lymph % (Auto) 15.5 % 01/06/24 18:04 [place] % (Auto) 10.0 % 01/06/24 18:04 Eos % (Auto) 8.0 % 01/06/24 18:04 Baso % (Auto) 1.0 % 01/06/24 18:04 Neut # (Auto) 3.34 10^3/uL (1.8-7.7) 01/06/24 18:04 Lymph # (Auto) 0.8 10^3/uL (0.8-4.8) 01/06/24 18:04 [place] # (Auto) 0.5 10^3/uL (0.2-0.9) 01/06/24 18:04 Eos # (Auto) 0.4 10^3/uL (0.0-0.8) 01/06/24 18:04 Baso # (Auto) 0.1 10^3/uL (0.0-0.1) 01/06/24 18:04 Nucleated RBC % (auto) 0 % 01/06/24 18:04 Nucleated RBCs # 0.0 /100WBC 01/06/24 18:04 Sodium 139 mmol/L (136-145) 01/06/24 18:04 Potassium 4.7 mmol/L (3.5-5.1) 01/06/24 18:04 Chloride 104 mmol/L (98-107) 01/06/24 18:04 Carbon Dioxide 26 mmol/L (22-29) 01/06/24 18:04 Anion Gap 13.7 (5-19) 01/06/24 18:04 BUN 22 mg/dL (8-23) 01/06/24 18:04 Creatinine 1.0 mg/dL (0.7-1.2) 01/06/24 18:04 GFR Calculation 75.0 mL/min (90-130) L 01/06/24 18:04 Glucose 226 mg/dL (65-115) H 01/06/24 18:04 Calculated Osmolality 298 mOsm/kg (285-295) H 01/06/24 18:04 Calcium 9.1 mg/dL (8.5-10.5) 01/06/24 18:04 Total Bilirubin 0.6 mg/dL (0.15-1.2) 01/06/24 18:04 AST 70 U/L (0-40) H 01/06/24 18:04 ALT 54 U/L (0-41) H 01/06/24 18:04 Alkaline Phosphatase 143 U/L (40-130) H 01/06/24 18:04 Ammonia 74 umol/L (16-60) H 01/06/24 18:04 Total Protein 7.6 g/dL (6.6-8.7) 01/06/24 18:04 Albumin 3.4 g/dL (3.5-5.2) L 01/06/24 18:04 Globulin 4.2 g/dL (1.3-4.6) 01/06/24 18:04 All radiology interpretation(s) finalized by discharge EKG Data EKG 1: I personally reviewed and interpreted this EKG as follows: EKG interpretation date: 01/06/24 EKG interpretation time: 18:47 Interpretation: nsr hr [address] or t wave abnormalities qrs 88 qtc 400 Discharge Plan Discharge Patient Disposition: Home Clinical Impression: Cirrhosis of liver Condition: Stable Prescriptions: No Action insulin asp prt-insulin aspart [Novolog Mix 70-30 U-100 Insuln] 100 unit/mL (70-30) solution 5 unit SUBCUT DIRECTED Rx Instructions: if blood sugar 150 start with 3 units lisinopril-hydrochlorothiazide 10-12.5 mg tablet 1 tab PO DAILY Qty: 90 0RF tamsulosin [Flomax] 0.4 mg capsule 0.4 mg PO DAILY Qty: 30 12RF tramadol 50 mg tablet 50 mg PO Q6H PRN (Reason: pain) Qty: 10 0RF Discharge Orders: Discharge ED (Routine); Ordered 01/06/24 Ordered By: Aly Mercedes Referrals: Jaleesa Saavedra APN [Primary Care Provider] - 4-7 days Discharge Diet: Advance as tolerated Discharge Activity: Resume usual activity Patient Instructions: Cirrhosis of the Liver (ED) Coding Level of Care Code ED Airport Operations Crew Member for Ignacia Wang
[2024-01-06 18:29] LABS: Alanine Aminotransferase 54 U/L (0-41); Albumin Level 3.4 g/dL (3.5-5.2); Alkaline Phosphatase 143 U/L (40-130); Anion Gap 13.7 (5-19); Aspartate Amino Transferase 70 U/L (0-40); Blood Urea Nitrogen 22 mg/dL (8-23); Calcium 9.1 mg/dL (8.5-10.5); Carbon Dioxide 26 mmol/L (22-29); Chloride 104 mmol/L (98-107); Globulin 4.2 g/dL (1.3-4.6); Glucose 226 mg/dL (65-115); Osmolality Calculated 298 mOsm/kg (285-295); Potassium 4.7 mmol/L (3.5-5.1); Sodium 139 mmol/L (136-145); Total Bilirubin 0.6 mg/dL (0.15-1.2); Total Protein 7.6 g/dL (6.6-8.7)
[2024-01-06 18:35] LABS: Slide Review Slide Review Perform
--- NOTE | 2024-01-06 18:35 | XRR_ITS ---
PROCEDURE INFORMATION: Exam: XR Chest Exam date and time: 01/06/2024 6:40 PM Age: 63 years old Clinical indication: Other: AMS TECHNIQUE: Imaging protocol: Radiologic exam of the chest. Views: 1 view. COMPARISON: CT abdomen pelvis wo/w [id number] 08/23/2021 1:26 PM FINDINGS: Lungs: Unremarkable. No consolidation. Incidental note is made of calcified granulomata in the bilateral lung bases. Pleural spaces: Unremarkable. No pleural effusion. No pneumothorax. Heart/Mediastinum: Unremarkable. No cardiomegaly. Bones/joints: Unremarkable. XR/XR chest 1V portable [id number] IMPRESSION: No acute findings.
[2024-01-06 18:39] LABS: Ammonia 74 umol/L (16-60)
--- NOTE | 2024-01-06 18:47 | ECG_ITS ---
[facility] Test Date: 2024-01-06 Pat Name: Mario Morris Department: Room: Gender: Male Belly Packer: : 1960 Requested By: Aly Mercedes Order Number: [id number] Yani MD: Tyrell Cancino M.D. Measurements Intervals [place] Rate: 72 P: 38 IA: 139 QRS: 65 QRSD: 88 T: 53 QT: 376 QTc: 413 Interpretive Statements SINUS RHYTHM Compared to ECG 08/30/2021 13:07:01 Junctional rhythm no longer present Electronically Signed On 01-07-2024 9:46:52 CARGO OPERATIONS AGENT by Tyrell Cancino M.D. [email or web address] [id number]
[2024-01-06] MEDS: lactulose oral liq 20 gm/30 mL UDC 30 GM PO (19:36)
== END 2024-01-06 19:37 | disposition home or self-care (01) ==
PROVIDERS: Emergency Provider Emergency Medicine; PCP Nurse Practitioner Family
DX: K74.60 Unspecified cirrhosis of liver (principal); Z79.4 Long term (current) use of insulin; Z86.19 Personal history of other infectious and parasitic diseases
CPT/HCPCS: 36415; 71045; 80053; 82140; 85025; 93005; 99285

== ENCOUNTER 2024-05-24 08:33 | Emergency (ER) | payer MEDICAID, MEDICARE, SELFPAY ==
[2024-05-24 08:43] VITALS: BP 168/75; PULSE 82; RESP 18; TEMP 36.8; O2SAT 100; BMI 30.1
--- NOTE | 2024-05-24 09:37 | PC.NURSE ---
Pt refusing IV and Blood work, notified,
--- NOTE | 2024-05-24 10:06 | ED_ITS ---
HPI - Extremity Problem General: Chief complaint: Extremity Problem,Nontraumatic Stated complaint: right leg pain, dr referral Time Seen by Provider: 05/24/24 08:57 Source: patient Mode of arrival: ambulatory Limitations: no limitations History of Present Illness: 63-year-old male who states that he has been having some swelling over his right lower extremity for the last week he states he saw his PCP on Saturday scheduled for an outpatient ultrasound on Saturday but states he had some worsening swelling so he is concerned. Had some slight erythema denies any shortness of breath denies any injury Associated symptoms: Deny chest pain, fever(s) or rash Review of Systems Const: Denies: fever(s), chills, body aches or change in appetite ENMT: Denies: throat pain or dental pain Card: Denies: chest pain Resp: Denies: dyspnea GI: Denies: abdominal pain, nausea, vomiting or diarrhea : Denies: dysuria Musc: Reports: extremity swelling; Denies: neck pain or back pain Skin/Breast: Denies: rash Neuro: Denies: headache(s) PFSH ED PFSH: Medical History BPH w urinary obs/LUTS Injury of finger of left hand Screening for colon cancer Diabetes Hepatitis C Cirrhosis of liver Hernia MRSA (methicillin resistant staph aureus) culture positive Osteomyelitis Surgical History H/O knee surgery Hx of appendectomy No pertinent past surgical history Family History Son CAD (coronary artery disease) Mother Diabetes Hypertension Father , at age 62 Hypertension Lung disease Stroke Social History Second hand smoke exposure: No Alcohol intake: former Substance/Drug Use: current Substance/Drug use frequency: daily Other substance/drug use details: last meth use 1 month ago Caregiver/support person: Yes Lives independently: Yes Marital status: service: No Current occupational status: disabled Special maranda needs: No Agree to transfusion: Yes Physical Exam Const: COMMON NORMALS: no acute distress, patient oriented x3 and healthy appearing HENMT: COMMON NORMALS: normocephalic and atraumatic HEAD & SCALP: normocephalic and atraumatic Neck/C-Spine: COMMON NORMALS: full ROM and supple Chest: COMMONS NORMALS: normal inspection of the chest Resp: COMMON NORMALS: normal respiratory effort, No retractions, No use of ac cessory muscles and clear to auscultation bilaterally AUSCULTATION: clear to auscultation bilaterally Cardio: COMMON NORMALS: regular rate, regular rhythm and No murmurs present (Cardio) RATE: regular rate RHYTHM: regular rhythm Extremity: COMMON NORMALS: full ROM NARRATIVE EXTREMITY EXAM: Swelling noted to right lower leg no warmth to touch distal pulses intact Neuro: COMMON NORMALS: patient oriented x3, moves all extremities and no focal motor deficits Psych: COMMON NORMALS: mental status grossly normal, Normal thought process present and cooperative THOUGHT PROCESS: Normal thought process present Skin: COMMON NORMALS: no rashes or lesions noted and no wounds GENERAL SKIN EXAM: no rashes or lesions noted Course Vital Signs: Vital signs: Vital Signs Temperature 98.3 F 05/24/24 08:43 Pulse Rate 82 05/24/24 08:43 Respiratory Rate 18 05/24/24 08:43 Blood Pressure 168/75 05/24/24 08:43 Pulse Oximetry 100 05/24/24 08:43 Oxygen Delivery Me thod Room Air 05/24/24 08:43 MDM - Extremity (Nontraumatic) Medical Decision Making Patient presents with right lower leg swelling. Patient refused IV blood draw after being here for little over an hour he is very frustrated with how long it is taking did explain to him we have 1 electroencephalograph technician that is on-call and she is doing an ultrasound in the ICU he states that he just wants to leave and get the ultrasounds that he has scheduled tomorrow and he did sign out AGAINST MEDICAL ADVICE Medical Records I reviewed the patient's medical records. No radiology studies performed this visit Discharge Plan Discharge Patient Disposition: Left Against Medical Advice Clinical Impression: Right leg swelling Prescriptions: No Action insulin asp prt-insulin aspart [Novolog Mix 70-30 U-100 Insuln] 100 unit/mL (70-30) solution 5 unit SUBCUT DIRECTED Rx Instructions: if blood sugar 150 start with 3 units lisinopril-hydrochlorothiazide 10-12.5 mg tablet 1 tab PO DAILY Qty: 90 0RF tamsulosin [Flomax] 0.4 mg capsule 0.4 mg PO DAILY Qty: 30 12RF tramadol 50 mg tablet 50 mg PO Q6H PRN (Reason: pain) Qty: 10 0RF Referrals: Jaleesa Saavedra APN [Primary Care Provider] - Coding Level of Care Code ED Lead Shop Operator for Ignacia Wang
== END 2024-05-24 10:00 | disposition left against medical advice (07) ==
PROVIDERS: Emergency Provider Emergency Medicine; PCP Nurse Practitioner Family
DX: M79.89 Other specified soft tissue disorders (principal); Z53.29 Procedure and treatment not carried out because of patient's decision for other reasons; Z79.4 Long term (current) use of insulin; E11.9 Type 2 diabetes mellitus without complications; Z86.19 Personal history of other infectious and parasitic diseases
CPT/HCPCS: 99281